=== PATIENT | male | born 2000 | race Caucasian/White ===

== ENCOUNTER 2020-12-22 15:06 | Emergency (ER) | payer MEDICAID, OTHER ==
[~2020-12-22] VITALS: Ht 180.3 cm; Wt 61.2 kg
[2020-12-22] MEDS ORDERED: LORazepam 0.5 MG TAB PO ONE (15:30)
[2020-12-22 18:36] VITALS: BP 135/78
== END 2020-12-22 18:39 | disposition home or self-care (01) ==
LOC: EDBD 15:06 → ER 15:06
DX: M25.572 Pain in left ankle and joints of left foot (principal); R45.851 Suicidal ideations; W22.8XXA Striking against or struck by other objects, initial encounter; Y93.39 Activity, other involving climbing, rappelling and jumping off; Y92.89 Other specified places as the place of occurrence of the external cause; Y99.8 Other external cause status
CPT/HCPCS: 73610; 73630